=== PATIENT | female | born 1940 | race Caucasian/White ===

== ENCOUNTER 2017-04-03 09:12 | Emergency (ER) | payer MEDICARE, OTHER ==
[2017-04-03 09:39] VITALS: BP 152/61
[2017-04-03] MEDS ORDERED: Ipratropium 0.5MG/2.5ML NEB* 0.5 MG/2.5 ML NEB.SOLN INH ONE (10:01)
[2017-04-03] MEDS ORDERED: Albuterol 2.5 MG/3 ML NEB.SOL* (0.083%) INH ONE (10:01)
--- NOTE | 2017-04-03 10:07 | UC ---
Respiratory Complaint HPI - HPI Summary HPI Summary: 76 female with about a 4 day hx of cough productive of green phelgm feverish and chills chest feels tight some nausea no vomiting hx autoimmune problem...on MTX also right hip pain a/p fall early in week able to ambulate - History of Current Complaint Chief Complaint: UCRespiratory Stated Complaint: CHEST PRESSURE,COUGH Time Seen by Provider: 04/03/17 09:18 Hx Obtained From: Patient Onset/Duration: Sudden Onset, Lasting Days Timing: Constant Severity Initially: Mild Severity Currently: Moderate Pain Intensity: 3 Pain Scale Used: 0-10 Numeric Character: Sputum Description: - green Alleviating Factors: Nothing Associated Signs And Symptoms: Positive: Fever - reza, Chills - Allergies/Home Medications Allergies/Adverse Reactions: Allergies Allergy/AdvReac Type Severity Reaction Status Date / Time Ibuprofen Allergy Hives Verified 04/03/17 09:26 Home Medications: Home Medications Cholecalciferol [D 1000] 1 tab PO DAILY 04/03/17 [History Confirmed 04/03/17] Fluticasone Furoate (Inhalatio [Arnuity Ellipta] 1 inh IN DAILY 04/03/17 [ History Confirmed 04/03/17] Ipratropium HFA INHALER(NF) [Atrovent Hfa Inhaler(NF)] 2 puff INH Q6H 04/03/17 [ History Confirmed 04/03/17] Montelukast Sodium TAB* [Singulair TAB*] 10 mg PO BEDTIME 04/03/17 [History Confirmed 04/03/17] PMH/Surg Hx/FS Hx/Imm Hx Previously Healthy: Yes Respiratory History: COPD, Asthma, Pneumonia - as child - Surgical History Surgical History: Yes Surgery Procedure, Year, and Place: hysterectomy, right rotocuff - Family History Known Family History: Positive: Cardiac Disease, Hypertension - Social History Alcohol Use: None Substance Use Type: None Smoking Status (MU): Never Smoked Tobacco Type: Cigarettes Review of Systems Constitutional: Fever, Chills Skin: Negative Eyes: Negative ENT: Negative Respiratory: Cough Cardiovascular: Negative Gastrointestinal: Negative Genitourinary: Negative Motor: Negative Neurovascular: Negative Musculoskeletal: Arthralgia Neurological: Negative Psychological: Negative All Other Systems Reviewed And Are Negative: Yes Physical Exam Triage Information Reviewed: Yes Appearance: Well-Appearing, No Pain Distress, Well-Nourished Vital Signs: Initial Vital Signs Temp 100.5 F 04/03/17 09:32 Pulse 119 04/03/17 09:32 Resp 24 04/03/17 09:32 BP 152/61 04/03/17 09:32 Pulse Ox 96 04/03/17 09:32 Vital Signs Reviewed: Yes Eyes: Positive: Conjunctiva Clear ENT: Positive: Hearing grossly normal. Negative: Nasal congestion, Nasal drainage Neck: Positive: Supple, Nontender, No Lymphadenopathy Respiratory: Positive: Lungs clear, Normal breath sounds, No respiratory distress, No accessory muscle use, Wheezing - with forced expiration Cardiovascular: Positive: RRR, Tachycardia Musculoskeletal: Positive: Strength Intact, ROM Intact, No Edema Neurological: Positive: Alert Psychological Exam: Normal Skin Exam: Normal UC Diagnostic Evaluation - Laboratory O2 Sat by Pulse Oximetry: 96 - normal/not hypoxic - Radiology Xray Interpretation: No Acute Changes Radiology Interpretation Completed By: Radiologist - EKG Cardiac Rate: NL, Tachycardia Cardiac Rhythm: Sinus: Normal Ectopy: None ST Segment: Normal - s Re-Evaluation - Re-Evaluation First Eval Re-Evaluation Time: 10:45 Change: Improved - lungs clear /subjective improvement Respiratory Course/Dx - Differential Dx/Diagnosis Provider Diagnoses: acute bronchitis with bronchospasm. right hip contusion Discharge - Discharge Plan Condition: Stable Disposition: HOME Prescriptions: Amoxicillin PO (*) [Amoxicillin 875 MG (*)] 875 mg PO BID #14 tab Prednisone [Deltasone] 20 mg PO DAILY #4 tab Patient Education Materials: Acute Bronchitis (ED), Contusion in Adults (ED) Referrals: Non Staff,Doctor [Primary Care Provider] - 3 Days (if not better ) Additional Instructions: return for new or worsening symptoms recheck with your MD after you have finished your antibiotics
--- NOTE | 2017-04-03 10:16 | RAD ---
HISTORY: Productive cough, fever COMPARISONS: None VIEWS: 4: Frontal dual-energy and lateral views of the chest. FINDINGS: CARDIOMEDIASTINAL SILHOUETTE: The cardiomediastinal silhouette is normal. ALFREDO: The alfredo are normal. PLEURA: The costophrenic angles are sharp. No pleural abnormalities are noted. LUNG PARENCHYMA: There is hyperinflation with flattening of the diaphragm and expansion of the AP diameter of the chest. There is a coarse reticular pattern. ABDOMEN: The upper abdomen is clear. There is no subphrenic gas. BONES AND SOFT TISSUES: No bone or soft tissue abnormalities are noted. OTHER: None. IMPRESSION: COPD WITH MILD FIBROTIC CHANGES. NO ACTIVE CARDIOPULMONARY DISEASE.
--- NOTE | 2017-04-03 10:17 | RAD ---
HISTORY: Right hip injury COMPARISONS: None VIEWS: 3, Frontal view of the pelvis with frontal and frog-leg views the right hip FINDINGS: BONE DENSITY: Normal. BONES: There is no displaced fracture. 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 ALIGNMENT: There is no dislocation. SOFT TISSUES: Unremarkable. OTHER FINDINGS: Degenerative changes are noted of the spine. IMPRESSION: NO RADIOGRAPHIC EVIDENCE FOR HIP FRACTURE. X-RAYS MAY BE NEGATIVE WITH NONDISPLACED HIP FRACTURE, IF THERE IS PERSISTENT CLINICAL CONCERN, RECOMMEND CONSIDERATION OF MRI. IN THE SETTING OF CONTRAINDICATION TO MRI OR LIMITATION IN EMERGENT ACCESS TO MRI, CT WOULD BE SUGGESTED.
[2017-04-03] MEDS ORDERED: Albuterol HFA INHALER* 8 gm MDI INH ONE (10:45)
[2017-04-03] MEDS ORDERED: predniSONE TAB* 20 MG PO ONE (10:46)
== END 2017-04-03 11:17 | disposition home or self-care (01) ==
LOC: UCCORT 09:12
DX: J20.9 Acute bronchitis, unspecified (principal); S70.01XA Contusion of right hip, initial encounter; W19.XXXA Unspecified fall, initial encounter; Y93.9 Activity, unspecified; Y92.9 Unspecified place or not applicable; J44.9 Chronic obstructive pulmonary disease, unspecified; Z90.710 Acquired absence of both cervix and uterus
CPT/HCPCS: 71020; 93005; 99213; A9270-GY; G0463; J7512; J7644